=== PATIENT | female | born 1965 | race Caucasian/White ===

== ENCOUNTER 2016-06-22 12:56 | Emergency (ER) | payer MEDICAID ==
[~2016-06-22] VITALS: Ht 170.2 cm; Wt 75.0 kg
[2016-06-22 13:03] VITALS: Ht 170.2 cm; Wt 75.0 kg
[2016-06-22] MEDS ORDERED: SOD CHLORIDE 0.9% 1,000 ML IV STA (15:09)
[2016-06-22] MEDS ORDERED: ONDANSETRON 4 MG INJ IV STA (15:09)
[2016-06-22] MEDS ORDERED: KETOROLAC 15 MG INJ IV STA (15:09)
[2016-06-22] MEDS ORDERED: LIDOCAINE/MYLANTA 40 ML BTL PO STA (15:09)
[2016-06-22] MEDS ORDERED: BELLADONNA/PHENOBARBITAL TAB PO STA (15:09)
[2016-06-22 15:34] LABS: ALBUMIN 4.5 g/dl (3.3-4.9); CHLORIDE 100 mmol/L (97-110); POTASSIUM 4.4 mmol/L (3.5-5.1); SODIUM 141 mmol/L (135-144)
[2016-06-22 15:35] LABS: BASOPHILS % 1.1 % (0.0-2.0); EOSINOPHILS % 0.2 % (0.0-7.0); HEMATOCRIT 44.3 % (37.0-47.0); HEMOGLOBIN 15.1 g/dl (12.0-16.0); LYMPHOCYTES # 0.5 10^3/ul (0.8-2.9); LYMPHOCYTES % 12.5 % (15.0-51.0); MEAN CORPUSCULAR HEMOGLOBIN 30.3 pg (29.0-33.0); MEAN CORPUSCULAR HGB CONC 34.2 g/dl (32.0-37.0); MEAN CORPUSCULAR VOLUME 88.7 fl (82.0-101.0); MEAN PLATELET VOLUME 9.2 fl (7.4-10.4); MONOCYTE # 0.3 10^3/ul (0.3-0.9); MONOCYTES % 7.8 % (0.0-11.0); NEUTROPHIL # 3.2 10^3/ul (1.6-7.5); NEUTROPHILS % 78.4 % (39.0-77.0); PLATELET COUNT 157 10^3/UL (140-440); RED BLOOD COUNT 4.99 10^6/ul (4.20-5.40); RED CELL DISTRIBUTION WIDTH 13.5 % (11.5-14.5); UNCORRECTED WBC 4.1 10^3/ul (4.8-10.8); WHITE BLOOD COUNT 4.1 10^3/ul (4.8-10.8)
[2016-06-22 15:36] LABS: CONDITION 1
[2016-06-22 15:37] LABS: ALANINE AMINOTRANSFERASE 30 IU/L (13-69); ALBUMIN/GLOBULIN RATIO 1.28; ALKALINE PHOSPHATASE 73 IU/L (42-121); ANION GAP 15 (8-16); ASPARTATE AMINO TRANSFERASE 29 IU/L (15-46); BILIRUBIN,INDIRECT 1.3 mg/dl (0-1.1); BILIRUBIN,TOTAL 1.3 mg/dl (0.2-1.3); BLOOD UREA NITROGEN 12 mg/dl (7-20); CARBON DIOXIDE 30 mmol/L (21-31); CREATININE 0.77 mg/dl (0.44-1.00); GLUCOSE 82 mg/dl (70-220)
[2016-06-22 15:38] LABS: CALCIUM 9.7 mg/dl (8.4-10.2)
[2016-06-22 15:52] LABS: TROPONIN-I < 0.012 ng/ml (0.00-0.12)
[2016-06-22] MEDS ORDERED: FAMO40TA52 PO (16:20)
[2016-06-22] MEDS ORDERED: NAPR-260 PO (16:20)
[2016-06-22] MEDS ORDERED: MAG355OR14 PO (16:20)
--- NOTE | 2016-06-22 16:22 | ERD ---
ER Documentation Chief Complaint Date/Time DATE: 06/22/16 TIME: 16:20 Chief Complaint RT SIDED ABD PAIN X 3 DAYS. HPI 51-year-old woman presents with right upper quadrant abdominal pain constant 3 days she has a history of cholecystectomy. She denies weight loss, no fevers or chills, no vomiting or diarrhea, no complaints of chest pain or shortness of breath. Patient denies precipitating factors and denies spicy or high fat diet. ROS All systems reviewed and are negative except as per history of present illness. Medications Home Meds Active Scripts Cephalexin* (Keflex*) 500 Mg Capsule, 500 MG PO QID for 5 Days, CAP Prov:JESSICA GALLO MD 06/22/16 Famotidine* (Famotidine*) 40 Mg Tablet, 40 MG PO BID, #60 TAB Prov:JESSICA GALLO MD 06/22/16 Mag Hydrox/Al Hydrox/Simeth (Maalox Advanced Suspension) 355 Ml Oral.susp, 2 TSP PO TID for PAIN, #24 OZ Prov:JESSICA GALLO MD 06/22/16 Naproxen* (Naprosyn*) 500 Mg Tablet, 500 MG PO BID Y for PAIN AND/OR INFLAMMATION, #30 TAB Prov:JESSICA GALLO MD 06/22/16 Allergies Allergies: Coded Allergies: Codeine (Verified Allergy, 05/04/13) morphine (Verified Allergy, 05/04/13) PMhx/Soc History of cholecystectomy History of Surgery: Yes (cholecystectomy, ) Anesthesia Reaction: No Hx Neurological Disorder: No Hx Respiratory Disorders: No Hx Cardiac Disorders: No Hx Psychiatric Problems: No Hx Miscellaneous Medical Probl: No Hx Alcohol Use: No Hx Substance Use: No Hx Tobacco Use: No Smoking Status: Never smoker FmHx Family History: No diabetes Physical Exam Vitals Vital Signs Date Time Temp Pulse Resp B/P Pulse Ox O2 Delivery O2 Flow Rate FiO2 06/22/16 17:45 60 20 120/67 99 Room Air 06/22/16 13:03 96.7 54 19 124/79 99 Physical Exam GENERAL: Well-developed, well-nourished, well-hydrated, in no apparent distress , looks nontoxic in appearance HEENT: Moist mucous membranes, pink conjunctiva, no cervical spine tenderness or step-off deformities, no goiter, no jaundice or icterus, extraocular movements intact without pain. No submandibular induration, and no pharyngeal erythema NEURO: Alert and oriented 3, cranial nerves II through XII intact bilaterally, pupils equal round reactive to light, no focal deficits or facial asymmetry, sensation intact distally Strength 5/5 in upper and lower extremities bilaterally CARDIAC: Regular rate and rhythm, no murmurs rubs or gallops LUNGS: Clear bilaterally no wheezing crackles or stridor ABDOMEN: Soft nontender, no guarding, no rigidity, no rebound, no psoas sign no obturator sign. Normoactive bowel sounds SKIN: Warm and dry to touch, no abrasions, contusions, or hematomas, no lacerations, no ecchymosis, no target lesions, and without ulcers EXTREMITIES: No clubbing cyanosis or edema, calves are bilaterally symmetrical, no Homans sign, no popliteal cord sign. Distal pulses equal and bilateral PSYCH: Normal affect without agitation or irritability Result Diagram: 06/22/16 1510 06/22/16 1510 Results 24 hrs Laboratory Tests Test 06/22/16 15:10 06/22/16 16:10 Alanine Aminotransferase (ALT/SGPT) 30IU/L Albumin 4.5g/dl Albumin/Globulin Ratio 1.28 Alkaline Phosphatase 73IU/L Anion Gap 15 Aspartate Amino Transf (AST/SGOT) 29IU/L Basophils # 0.010^3/ul Basophils % 1.1% Blood Urea Nitrogen 12mg/dl Calcium Level 9.7mg/dl Carbon Dioxide Level 30mmol/L Chloride Level 100mmol/L Creatinine 0.77mg/dl Direct Bilirubin 0.00mg/dl Eosinophils # 0.010^3/ul Eosinophils % 0.2% Globulin 3.50g/dl Glucose Level 82mg/dl Hematocrit 44.3% Hemoglobin 15.1g/dl Indirect Bilirubin 1.3mg/dl Lipase 122U/L Lymphocytes # 0.510^3/ul Lymphocytes % 12.5% Mean Corpuscular Hemoglobin 30.3pg Mean Corpuscular Hemoglobin Concent 34.2g/dl Mean Corpuscular Volume 88.7fl Mean Platelet Volume 9.2fl Monocytes # 0.310^3/ul Monocytes % 7.8% Neutrophils # 3.210^3/ul Neutrophils % 78.4% Nucleated Red Blood Cells # 0.010^3/ul Nucleated Red Blood Cells % 0.0/100WBC Platelet Count 42357^3/UL Potassium Level 4.4mmol/L Red Blood Count 4.9910^6/ul Red Cell Distribution Width 13.5% Sodium Level 141mmol/L Total Bilirubin 1.3mg/dl Total Protein 8.0g/dl Troponin I < 0.012ng/ml White Blood Count 4.110^3/ul Urine Bacteria FEW Urine Bilirubin NEGATIVE Urine Clarity SL HAZY Urine Color LT. YELLOW Urine Glucose NEGATIVE% Urine Hemoglobin NEGATIVE Urine Ketones NEGATIVE Urine Leukocyte Esterase 1+ Urine Microscopic RBC 0-2/HPF Urine Microscopic WBC 10-25/HPF Urine Nitrite NEGATIVE Urine Specific [place] <=1.005 Urine Squamous Epithelial Cells MODERATE Urine Total Protein NEGATIVE Urine Urobilinogen 0.2 E.U./dL Urine pH 6.0 Current Medications Medications (Trade) Dose Ordered Sig/Mallorie Route PRN Reason Start Time Stop Time Status Last Admin Dose Admin Sodium Chloride (NS) 1,000 ml @ 1,000 mls/hr Q1H STAT IV 06/22/16 15:09 06/22/16 16:08 DC 06/22/16 15:28 Ondansetron HCl (Zofran Inj) 4 mg ONCE STAT IV 06/22/16 15:09 06/22/16 15:10 DC 06/22/16 15:27 Miscellaneous Medication (Gi Cocktail (2)) 40 ml ONCE STAT PO 06/22/16 15:09 06/22/16 15:10 DC 06/22/16 15:27 Belladonna/ Phenobarbital () 2 tab ONCE STAT PO 06/22/16 15:09 06/22/16 15:10 DC 06/22/16 15:27 Ketorolac Tromethamine (Toradol) 15 mg ONCE STAT IV 06/22/16 15:09 06/22/16 15:10 DC 06/22/16 15:27 Cephalexin (Keflex) 500 mg ONCE ONCE PO 06/22/16 17:00 06/22/16 17:01 DC 06/22/16 17:34 Procedures/MDM IV line was established patient was placed on engine monitor rhythm strip revealed a sinus rhythm at about 60 bpm with upright P and T waves. Patient was afebrile. EKG performed, read by me revealed a normal sinus rhythm at 62 bpm, normal axis , with a right bundle branch block and a QRS duration of 134 ms, no concerning ST elevations or depressions noted. I administered 1 L normal saline intravenously, Toradol 15 mg IV, GI cocktail 50 cc p.o., and famotidine 40 mg p.o. with excellent effect. CBC and electrolytes were unremarkable, liver function tests were normal, troponin was negative. Urine analysis was concerning for infection I treated her here with cephalexin 500 mg p.o. 1. Differential diagnoses considered, included but not limited to acute coronary syndrome, pulmonary embolism, aortic dissection, abdominal aortic aneurysm, sepsis, stroke, meningitis, encephalitis, pneumonia, appendicitis, cholecystitis , bowel obstruction, pyelonephritis, nephrolithiasis, cystitis, as well as metabolic, hematologic, and electrolyte abnormalities. As well as abscess, cellulitis, fractures, and dislocations. Patient feels much better at this time, and vital signs are normal, symptoms have improved. I did give strict instructions to return to the ED if symptoms continue or worsen, patient will otherwise follow-up with primary care physician. Patient understood instructions and agreed to plan. Departure Diagnosis: Primary Impression: Abdominal pain Abdominal location: right upper quadrant Qualified Code: R10.11 - Right upper quadrant abdominal pain Additional Impression: UTI (urinary tract infection) Urinary tract infection type: acute cystitis Hematuria presence: without hematuria Qualified Code: N30.00 - Acute cystitis without hematuria Condition: Good Patient Instructions: Abdominal Pain JESSICA GALLO MD Jun 22, 2016 16:22
[2016-06-22 16:38] LABS: ADD UMIC YES; URINE BILIRUBIN (Dip) NEGATIVE (NEGATIVE); URINE BLOOD (Dip) NEGATIVE (NEGATIVE); URINE COLOR LT. YELLOW (YELLOW); URINE GLUCOSE (Dip) NEGATIVE (NEGATIVE); URINE KETONES (Dip) NEGATIVE (NEGATIVE); URINE LEUKOCYTE ESTERASE (Dip) 1+ (NEGATIVE); URINE NITRITE (Dip) NEGATIVE (NEGATIVE); URINE TOTAL PROTEIN (Dip) NEGATIVE (NEGATIVE); URINE UROBILINOGEN (Dip) 0.2 E.U./dL (0.1-1.0)
[2016-06-22 16:52] LABS: BACTERIA,URINE FEW; SQUAMOUS EPITHELIAL CELL,UR MODERATE; URINE RBCS 0-2 /HPF (0)
[2016-06-22] MEDS ORDERED: CEPHALEXIN 500 MG CAP PO ONE (17:00)
[2016-06-22] MEDS ORDERED: CEPH-443 PO (17:26)
[2016-06-22 17:45] VITALS: BP 120/67; PULSE 60; RESP 20
== END 2016-06-22 17:50 | disposition home or self-care (01) ==
LOC: E/R 12:56
DX: R10.11 Right upper quadrant pain (principal); N30.00 Acute cystitis without hematuria
CPT/HCPCS: 80053; 81001; 83690; 84484; 85025; 93005; J1885; J2405; J7030; Z7610; 36415; 81003; 96374; 96375

== ENCOUNTER 2016-11-21 10:31 | Emergency (ER) | payer MEDICAID ==
[~2016-11-21] VITALS: Ht 170.2 cm; Wt 78.0 kg
[~2016-11-21 10:31] MED LIST: CEPH-443 PO; FAMO40TA52 PO; MAG355OR14 PO; NAPR-260 PO
[2016-11-21 10:43] VITALS: Ht 170.2 cm; Wt 78.0 kg
[2016-11-21] MEDS ORDERED: ONDANSETRON 4 MG INJ IV STA (11:00)
[2016-11-21] MEDS ORDERED: KETOROLAC 30 MG INJ IV STA (11:00)
[2016-11-21] MEDS ORDERED: SOD CHLORIDE 0.9% 1,000 ML IV STA (11:00)
--- NOTE | 2016-11-21 11:03 | ERD ---
ER Documentation Chief Complaint Date/Time DATE: 11/21/16 TIME: 11:01 Chief Complaint bilat flank pain with pain/burning with urination x 3 days HPI 51-year-old female otherwise healthy complains of painful urination with foul odor urine for the past week followed by 4 days of bilateral flank pain. She complains of burning with urination, urgency, and reports achy pain diffusely to both flank regions. She has not had any febrile illness, denies nausea, vomiting. Denies chest pain, shortness of breath. ROS All systems reviewed and are negative except as per history of present illness. Medications Home Meds Active Scripts Naproxen* (Naprosyn*) 500 Mg Tablet, 500 MG PO BID Y for PAIN AND/OR INFLAMMATION, #30 TAB Prov:LUDY HENDRICKS PA-C 11/21/16 Cephalexin* (Keflex*) 500 Mg Capsule, 500 MG PO QID for 10 Days, CAP Prov:LUDY HENDRICKS PA-C 11/21/16 Cephalexin* (Keflex*) 500 Mg Capsule, 500 MG PO QID for 5 Days, CAP Prov:JESSICA GALLO MD 06/22/16 Famotidine* (Famotidine*) 40 Mg Tablet, 40 MG PO BID, #60 TAB Prov:JESSICA GALLO MD 06/22/16 Mag Hydrox/Al Hydrox/Simeth (Maalox Advanced Suspension) 355 Ml Oral.susp, 2 TSP PO TID for PAIN, #24 OZ Prov:JESSICA GALLO MD 06/22/16 Naproxen* (Naprosyn*) 500 Mg Tablet, 500 MG PO BID Y for PAIN AND/OR INFLAMMATION, #30 TAB Prov:JESSICA GALLO MD 06/22/16 Allergies Allergies: Coded Allergies: codeine (Verified Allergy, Unknown, 11/21/16) morphine (Verified Allergy, Unknown, 11/21/16) PMhx/Soc History of Surgery: Yes (cholecystectomy, ) Anesthesia Reaction: No Hx Neurological Disorder: No Hx Respiratory Disorders: No Hx Cardiac Disorders: No Hx Psychiatric Problems: No Hx Miscellaneous Medical Probl: Yes () Hx Alcohol Use: No Hx Substance Use: No Hx Tobacco Use: No Smoking Status: Never smoker Physical Exam Vitals Vital Signs Date Time Temp Pulse Resp B/P Pulse Ox O2 Delivery O2 Flow Rate FiO2 11/21/16 10:43 97.4 71 18 110/55 97 Physical Exam General: Well-developed, well-nourished. The patient appears in no acute distress. HEENT: Head is normocephalic, atraumatic. No scleral icterus. Neck: Supple. Nontender. Lungs: Clear to auscultation. Normal air movement. Heart: Regular rate and rhythm. S1 and S2 are normal. No murmurs, gallops, or rubs. Abdomen: Soft, nontender, nondistended. Bowel sounds are normoactive. Positive bilateral CVA tenderness. Extremities: No clubbing or cyanosis. Normal pulses. Moving extremities x 4. No weakness. Neurologic: Alert and oriented 3. No focal deficits. Skin: Normal turgor. No rash or lesions. Result Diagram: 11/21/16 1122 11/21/16 1122 Results 24 hrs Laboratory Tests Test 11/21/16 11:15 11/21/16 11:22 Urine Color STRAW Urine Clarity SLIGHTLY CLOUDY Urine pH 6.0 Urine Specific [place] 1.005 Urine Ketones NEGATIVEmg/dL Urine Nitrite NEGATIVEmg/dL Urine Bilirubin NEGATIVEmg/dL Urine Urobilinogen NEGATIVEmg/dL Urine Leukocyte Esterase 2+Osmani/ul Urine Microscopic RBC 4/HPF Urine Microscopic WBC 104/HPF Urine Bacteria FEW/HPF Urine Hemoglobin 3+mg/dL Urine Glucose NEGATIVEmg/dL Urine Total Protein NEGATIVEmg/dl White Blood Count 6.910^3/ul Red Blood Count 3.9710^6/ul Hemoglobin 12.1g/dl Hematocrit 37.0% Mean Corpuscular Volume 93.2fl Mean Corpuscular Hemoglobin 30.5pg Mean Corpuscular Hemoglobin Concent 32.7g/dl Red Cell Distribution Width 12.1% Platelet Count 71323^3/UL Mean Platelet Volume 11.5fl Neutrophils % 71.2% Lymphocytes % 19.1% Monocytes % 7.1% Eosinophils % 1.9% Basophils % 0.6% Nucleated Red Blood Cells % 0.0/100WBC Neutrophils # 4.910^3/ul Lymphocytes # 1.310^3/ul Monocytes # 0.510^3/ul Eosinophils # 0.110^3/ul Basophils # 0.010^3/ul Nucleated Red Blood Cells # 0.010^3/ul Sodium Level 140mmol/L Potassium Level 4.4mmol/L Chloride Level 104mmol/L Carbon Dioxide Level 28mmol/L Anion Gap 12 Blood Urea Nitrogen 11mg/dl Creatinine 0.76mg/dl Glucose Level 76mg/dl Calcium Level 9.8mg/dl Total Bilirubin 0.7mg/dl Direct Bilirubin 0.00mg/dl Indirect Bilirubin 0.7mg/dl Aspartate Amino Transf (AST/SGOT) 28IU/L Alanine Aminotransferase (ALT/SGPT) 34IU/L Alkaline Phosphatase 49IU/L Total Protein 7.4g/dl Albumin 4.9g/dl Globulin 2.50g/dl Albumin/Globulin Ratio 1.96 Lipase 145U/L Current Medications Medications (Trade) Dose Ordered Sig/Mallorie Route PRN Reason Start Time Stop Time Status Last Admin Dose Admin Sodium Chloride (NS) 1,000 ml @ 1,000 mls/hr Q1H STAT IV 11/21/16 11:00 11/21/16 11:59 DC 11/21/16 11:26 Ondansetron HCl (Zofran Inj) 4 mg ONCE STAT IV 11/21/16 11:00 11/21/16 11:02 DC 11/21/16 11:26 Ketorolac Tromethamine 30 mg 30 mg ONCE STAT IV 11/21/16 11:00 11/21/16 11:02 DC 11/21/16 11:26 Ceftriaxone Sodium (Rocephin) 50 ml @ 100 mls/hr ONCE ONCE IVPB 11/21/16 12:00 11/21/16 12:29 DC 11/21/16 12:10 Procedures/MDM ED course: Patient had an IV line established, blood and urine were obtained, she was given Toradol 30 mg IV. She was also given a fluid bolus of normal saline 1 L, Rocephin 1 g IV. Medical decision making: This is a 51-year-old female who presents with bilateral flank pain, painful urination consistent with UTI with flank pain. She has not had any febrile illness, nausea, vomiting. White blood cell count is normal renal function is normal today. She has greater than 100 white blood cells in her urine analysis and was treated for pyelonephritis given the presentation of her flank pain over the last 4 days. At this time I feel the patient is appropriate to be discharged home and managed on outpatient basis with oral antibiotics. She is able to tolerate by mouth, her pain has been under control and suspicion for septic kidney stone is low at this time. She will be given written copies of all of her workup today, and was asked to recheck with her primary care doctor in 1-2 days. Departure Diagnosis: Primary Impression: UTI (urinary tract infection) Additional Impression: Flank pain Condition: Good LUDY HENDRICKS PA-C Nov 21, 2016 11:03
[2016-11-21 11:30] LABS: ADD SCAN DIFF NO
[2016-11-21 11:32] LABS: BASOPHILS % 0.6 % (0.0-2.0); EOSINOPHILS # 0.1 10^3/ul (0.0-0.5); EOSINOPHILS % 1.9 % (0.0-7.0); HEMOGLOBIN 12.1 g/dl (12.0-16.0); LYMPHOCYTES # 1.3 10^3/ul (0.8-2.9); LYMPHOCYTES % 19.1 % (15.0-51.0); MEAN CORPUSCULAR HEMOGLOBIN 30.5 pg (29.0-33.0); MEAN CORPUSCULAR HGB CONC 32.7 g/dl (32.0-37.0); MEAN CORPUSCULAR VOLUME 93.2 fl (82.0-101.0); MEAN PLATELET VOLUME 11.5 fl (7.4-10.4); MONOCYTE # 0.5 10^3/ul (0.3-0.9); MONOCYTES % 7.1 % (0.0-11.0); NEUTROPHIL # 4.9 10^3/ul (1.6-7.5); NEUTROPHILS % 71.2 % (39.0-77.0); PLATELET COUNT 145 10^3/UL (140-415); RED BLOOD COUNT 3.97 10^6/ul (4.20-5.40); RED CELL DISTRIBUTION WIDTH 12.1 % (11.5-14.5); WHITE BLOOD COUNT 6.9 10^3/ul (4.8-10.8)
[2016-11-21 11:45] LABS: ADD UMIC YES; UR ASCORBIC ACID NEGATIVE (NEGATIVE); UR BACTERIA FEW /HPF (NONE SEEN); UR BILIRUBIN (Dip) NEGATIVE (NEGATIVE); UR BLOOD (Dip) 3+ mg/dL (NEGATIVE); UR CLARITY SLIGHTLY CLOUDY (CLEAR); UR COLOR STRAW (YELLOW); UR GLUCOSE (Dip) NEGATIVE (NEGATIVE); UR KETONES (Dip) NEGATIVE (NEGATIVE); UR LEUKOCYTE ESTERASE (Dip) 2+ Leu/ul (NEGATIVE); UR NITRITE (Dip) NEGATIVE (NEGATIVE); UR RBC 4 /HPF (0-5); UR SPECIFIC GRAVITY (Dip) 1.005 (1.003-1.030); UR TOTAL PROTEIN (Dip) NEGATIVE (NEGATIVE); UR UROBILINOGEN (Dip) NEGATIVE (NEGATIVE)
[2016-11-21 11:53] LABS: ALBUMIN 4.9 g/dl (3.3-4.9); ALBUMIN/GLOBULIN RATIO 1.96; BILIRUBIN,INDIRECT 0.7 mg/dl (0-1.1); BILIRUBIN,TOTAL 0.7 mg/dl (0.2-1.3); CALCIUM 9.8 mg/dl (8.4-10.2); CREATININE 0.76 mg/dl (0.44-1.00); POTASSIUM 4.4 mmol/L (3.5-5.1); TOTAL PROTEIN 7.4 g/dl (6.1-8.1)
[2016-11-21] MEDS ORDERED: CEFTRIAXONE 1 GM/50 ML (PMX) 50 ML IVPB ONE (12:00)
[2016-11-21] MEDS ORDERED: NAPR-260 PO (12:14)
[2016-11-21] MEDS ORDERED: CEPH-443 PO (12:14)
[2016-11-21 12:38] VITALS: BP 116/62; PULSE 76; RESP 20
== END 2016-11-21 12:39 | disposition home or self-care (01) ==
LOC: FTE 10:31
DX: N39.0 Urinary tract infection, site not specified (principal)
CPT/HCPCS: 36415; 80053; 81001; 83690; 85025; 96374; 96375; J0696; J1885; J2405; J7030; Z7502

== ENCOUNTER 2017-01-22 14:19 | Emergency (ER) | payer MEDICAID ==
[~2017-01-22] VITALS: Ht 170.2 cm; Wt 78.0 kg
[2017-01-22 14:45] VITALS: Ht 170.2 cm; Wt 78.0 kg
[2017-01-22] MEDS ORDERED: KETOROLAC 60 MG INJ IM STA (16:27)
--- NOTE | 2017-01-22 16:51 | RADRPT ---
PROCEDURE: Ultrasound abdomen limited CLINICAL INDICATION: Abdominal pain and trauma. TECHNIQUE: Gonzales scale ultrasound images of all 4 quadrants of the abdomen were obtained. COMPARISON: None available FINDINGS: No free fluid is identified in the abdomen. IMPRESSION: No visualized free fluid in the abdomen. RPTAT: AA .Peter Arevalo MD, MD Date Time Electronically viewed and signed by .Peter Arevalo MD, MD on 01/22/2017 16:51 .P/
--- NOTE | 2017-01-22 17:40 | RADRPT ---
PROCEDURE: XR ribs . CLINICAL INDICATION: left rib pain after fall TECHNIQUE: AP and oblique views of the left ribs were obtained. COMPARISON: None FINDINGS: The bone mineralization is normal. There is no acute fracture or subluxation. The soft tissues are unremarkable. IMPRESSION: No acute fracture. RPTAT: AA Maicol Patricio Physician Date Time Electronically viewed and signed by Maicol Patricio Physician on 01/22/2017 17:39 RC/
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
--- NOTE | 2017-01-22 18:13 | RADRPT ---
PROCEDURE: XR left shoulder. CLINICAL INDICATION: Fall, pain TECHNIQUE: AP, internal and external rotation, transscapular views of the left shoulder were perfor med. COMPARISON: None. FINDINGS: There is normal osseous mineralization and alignment. No acute fracture or osseous lesion is identified. There are normal joints without evidence of arthritis or dislocation. The soft tissues are unremarkable. IMPRESSION: No evidence of fracture or dislocation. < Physician Georgi Date Time Electronically viewed and signed by Physician Georgi on 01/22/2017 18:12 CS/
--- NOTE | 2017-01-22 18:59 | RADRPT ---
PROCEDURE: XR Pelvis 1 View. CLINICAL INDICATION: Pelvic pain and trauma. TECHNIQUE: Single AP view of the pelvis. COMPARISON: No prior studies are available for comparison. FINDINGS: The osseous structures are intact. No destructive bony lesions are observed. Bilateral hip joints are unremarkable. Degenerative changes are seen in the lower lumbar spine. Soft tissues surrounding the pelvis appear normal. IMPRESSION: No visualized traumatic injury. Degenerative changes in the lower lumbar spine. If there is high clinical suspicion for traumatic injury, further evaluation with CT should be consi dered. RPTAT: AA .Peter Arevalo MD, Date Time Electronically viewed and signed by .Peter Arevalo MD, on 01/22/2017 18:58 .P/
[2017-01-22] MEDS ORDERED: IBUP-1542 PO (19:03)
[2017-01-22 19:13] VITALS: BP 127/78; PULSE 76; RESP 18
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
== END 2017-01-22 19:15 | disposition home or self-care (01) ==
LOC: FTE 14:19
DX: S30.23XA Contusion of vagina and vulva, initial encounter (principal); S29.001A Unspecified injury of muscle and tendon of front wall of thorax, initial encounter; R10.2 Pelvic and perineal pain; V18.4XXA Pedal cycle driver injured in noncollision transport accident in traffic accident, initial encounter
CPT/HCPCS: 71100; 72072; 72100; 72170; 73030; 76705; 96372; J1885; Z7502